=== PATIENT | female | born 1975 ===

== ENCOUNTER 2018-06-29 20:12 | Emergency (ER) | payer SELFPAY ==
[2018-06-29 21:06] LABS: Urine Blood NEGATIVE (NEG); Urine Glucose NEGATIVE (NEG); Urine Protein NEGATIVE (NEG); Urine Specific Gravity 1.025 (1.005-1.030); Urine pH 6.5 (5.0-7.0)
[2018-06-29 21:32] LABS: Urine RBC <5 /HPF (NONE SEEN); Urine Trichomonas PRESENT (NONE SEEN)
[2018-06-29 21:33] LABS: Urine Bacteria <20 /HPF (<20); Urine Culture Reflex Order NOT NEEDED
--- NOTE | 2018-06-29 21:51 | ER ---
Nurse's Notes [facility] Name: Homa Rodríguez Age: 42 yrs Sex: Female : 1975 Arrival Date: 06/29/2018 Time: 20:17 Bed 13 Private MD: Diagnosis: Herpesviral [herpes simplex] infections;Trichomoniasis Presentation: 06/29 20:27 Presenting complaint: Patient states: genital open sores, pt seen at clinic and given ak1 Flagyl and nystatin. pt stated she has had it for months but the itching causes her to scratch and the sores open. Transition of care: patient was not received from another setting of care. Onset of symptoms is unknown. Risk Assessment: Do you want to hurt yourself or someone else? Patient reports no desire to harm self or others. Initial Sepsis Screen: Does the patient meet any 2 criteria? No. Patient's initial sepsis screen is negative. Does the patient have a suspected source of infection? No. Patient's initial sepsis screen is negative. Care prior to arrival: None. 20:27 Method Of Arrival: Ambulatory ak1 20:27 Acuity: [place] 4 ak1 Triage Assessment: 20:29 General: Appears in no apparent distress. Behavior is calm, cooperative. Pain: ak1 Complains of pain in buttocks and pelvis. 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 - Social history:: Smoking status: Patient uses tobacco products, smokes one-half pack cigarettes per day. - Ebola Screening: : No symptoms or risks identified at this time. Screenin:30 Abuse screen: Denies threats or abuse. Denies injuries from another. Nutritional ak1 screening: No deficits noted. Tuberculosis screening: No symptoms or risk factors identified. Fall Risk None identified. Assessment: 22:00 General: Appears in no apparent distress. comfortable, Behavior is calm, cooperative, rr5 appropriate for age. Pain: Denies pain. Neuro: Level of Consciousness is awake, alert, obeys commands, Oriented to person, place, time, situation. Cardiovascular: Capillary refill < 3 seconds Patient's skin is warm and dry. Respiratory: Airway is patent Respiratory effort is even, unlabored, Respiratory pattern is regular, symmetrical. GI: Abdomen is round. : skin lesions at right perineal area spread to the right buttock area. examined by arias assisted by michael carrero Reports vaginal itching. EENT: No signs and/or symptoms were reported regarding the EENT system. Derm: Rash noted that is itchy, raised, on right perineal spread to pelvis and buttocks. Musculoskeletal: No signs and/or symptoms reported regarding the musculoskeletal system. 22:36 Reassessment: Patient appears in no apparent distress at this time. Patient and/or rr5 family updated on plan of care and expected duration. Pain level reassessed. discharge instruction given and explained to patient without complaints made. Patient states feeling better. Patient states symptoms have improved. Vital Signs: 20:26 BP 150 / 97; Pulse 92; Resp 18; Temp 100.1(O); Pulse Ox 98% on R/A; Weight 74.84 kg ak1 (R); Height 4 ft. 11 in. (149.86 cm); Pain 5/10; 21:30 BP 141 / 70; Pulse 90; Resp 18; Pulse Ox 99% ; rr5 22:30 BP 143 / 76; Pulse 91; Resp 17; Pulse Ox 99% on R/A; rr5 20:26 Body Mass Index 33.33 (74.84 kg, 149.86 cm) ak1 ED Course: 20:17 Patient arrived in ED. ag3 20:26 Arm band placed on Patient placed in an exam room, Patient notified of wait time. ak1 20:29 Triage completed. ak1 20:30 Patient has correct armband on for positive identification. ak1 20:39 Jose A Lau, TOSHIA is Primary Nurse. rr5 20:43 Arias Hills NP is PHCP. pm1 20:43 Mohsen Echevarria MD is Attending Physician. pm1 21:30 Urine Microscopic Only Sent. rr5 22:37 No provider procedures requiring assistance completed. Patient did not have IV access rr5 during this emergency room visit. Administered Medications: 21:10 Drug: AZITHromycin 1 grams Route: PO; rr5 22:35 Follow up: time given at 2210H not 2110 rr5 22:39 Follow up: Response: No adverse reaction rr5 22:09 Drug: Flagyl 2 grams Route: PO; rr5 22:39 Follow up: Response: No adverse reaction rr5 22:11 Drug: Rocephin (cefTRIAXone) 250 mg Route: IM; Site: left gluteus; rr5 22:39 Follow up: Response: No adverse reaction rr5 Intake: Outcome: 21:51 Discharge ordered by MD. pm1 22:37 Discharged to home ambulatory. rr5 22:37 Condition: stable 22:37 Discharge instructions given to patient, Instructed on discharge instructions, follow up and referral plans. medication usage, Demonstrated understanding of instructions, follow-up care, medications, Prescriptions given X 1. 22:38 Patient left the ED. rr5 Signatures: Jessica Sawyer RN RN ak1 Arias Hills NP ASSEMBLY LEADER pm1 Elizabeth Ochoa 3 Jose A Lau RN RN rr5
--- NOTE | 2018-06-29 21:52 | EDPHYS ---
Physician Documentation [facility] Name: Homa Rodríguez Age: 42 yrs Sex: Female : 1975 Arrival Date: 06/29/2018 Time: 20:17 Bed 13 Private MD: ED Physician Mohsen Echevarria HPI: 06/29 22:00 This 42 yrs old Female presents to ER via Ambulatory with complaints of Skin Sore(s). pm1 22:00 Onset: The symptoms/episode began/occurred 2 month(s) ago. pm1 22:00 The patient presents with rash. Onset: The symptoms/episode began/occurred 2 month(s) pm1 ago. Modifying factors: The symptoms are alleviated by scratching, the symptoms are aggravated by nothing. Associated signs and symptoms: Pertinent positives: vaginal discharge, Pertinent negatives: cramping, diarrhea, fever, nausea, vomiting. The patient is sexually active, reports multiple partners, 2. The patient has been recently seen by a physician: 1 month(s) ago, with similar presenting complaints, and apparently given a diagnosis of Trichomoniasis and given Flagyl PO. Patient with itchy and painful rash to buttocks and groin area for th past two months. 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 - Social history:: Smoking status: Patient uses tobacco products, smokes one-half pack cigarettes per day. - Ebola Screening: : No symptoms or risks identified at this time. ROS: 22:00 Positive for vaginal discharge, Rash to groin. pm1 22:00 Constitutional: Negative for fever, chills, and weight loss, Eyes: Negative for injury, pain, redness, and discharge, ENT: Negative for injury, pain, and discharge, Neck: Negative for injury, pain, and swelling, Cardiovascular: Negative for chest pain, palpitations, and edema, Respiratory: Negative for shortness of breath, cough, wheezing, and pleuritic chest pain, Abdomen/GI: Negative for abdominal pain, nausea, vomiting, diarrhea, and constipation, Back: Negative for injury and pain, MS/Extremity: Negative for injury and deformity, Skin: Negative for injury, rash, and discoloration, Neuro: Negative for headache, weakness, numbness, tingling, and seizure. Exam: 22:00 Constitutional: This is a well developed, well nourished patient who is awake, alert, pm1 and in no acute distress. Head/Face: Normocephalic, atraumatic. Eyes: Pupils equal round and reactive to light, extra-ocular motions intact. Lids and lashes normal. Conjunctiva and sclera are non-icteric and not injected. Cornea within normal limits. Periorbital areas with no swelling, redness, or edema. ENT: Nares patent. No nasal discharge, no septal abnormalities noted. Tympanic membranes are normal and external auditory canals are clear. Oropharynx with no redness, swelling, or masses, exudates, or evidence of obstruction, uvula midline. Mucous membranes moist. Neck: Trachea midline, no thyromegaly or masses palpated, and no cervical lymphadenopathy. Supple, full range of motion without nuchal rigidity, or vertebral point tenderness. No Meningismus. Chest/axilla: Normal chest wall appearance and motion. Nontender with no deformity. No lesions are appreciated. Cardiovascular: Regular rate and rhythm with a normal S1 and S2. No gallops, murmurs, or rubs. Normal PMI, no JVD. No pulse deficits. Respiratory: Lungs have equal breath sounds bilaterally, clear to auscultation and percussion. No rales, rhonchi or wheezes noted. No increased work of breathing, no retractions or nasal flaring. Abdomen/GI: Soft, non-tender, with normal bowel sounds. No distension or tympany. No guarding or rebound. No evidence of tenderness throughout. Back: No spinal tenderness. No costovertebral tenderness. Full range of motion. 22:00 Skin: Warm, dry with normal turgor. Normal color with no rashes, no lesions, and no evidence of cellulitis. MS/ Extremity: Pulses equal, no cyanosis. Neurovascular intact. Full, normal range of motion. 22:00 : CVA tenderness, is absent, Pelvic Exam: External exam: herpes lesions noted, [facility] tech. 22:00 Neuro: Orientation: is normal, Motor: moves all fours. Vital Signs: 20:26 BP 150 / 97; Pulse 92; Resp 18; Temp 100.1(O); Pulse Ox 98% on R/A; Weight 74.84 kg ak1 (R); Height 4 ft. 11 in. (149.86 cm); Pain 5/10; 21:30 BP 141 / 70; Pulse 90; Resp 18; Pulse Ox 99% ; rr5 22:30 BP 143 / 76; Pulse 91; Resp 17; Pulse Ox 99% on R/A; rr5 20:26 Body Mass Index 33.33 (74.84 kg, 149.86 cm) ak1 MDM: 20:45 Patient medically screened. saurabh 21:48 Data reviewed: vital signs. Counseling: I had a detailed discussion with the patient pm1 and/or guardian regarding: the historical points, exam findings, and any diagnostic results supporting the discharge/admit diagnosis, lab results, the need for outpatient follow up, STD clinic, probate lawyer, to return to the emergency department if symptoms worsen or persist or if there are any questions or concerns that arise at home. 06/29 20:59 Order name: Urine Dipstick--Ancillary (enter results); Complete Time: 21:14 ar5 06/29 21:17 Order name: Urine Microscopic Only; Complete Time: 21:35 rr5 Administered Medications: 21:10 Drug: AZITHromycin 1 grams Route: PO; rr5 22:35 Follow up: time given at 2210H not 2110 rr5 22:39 Follow up: Response: No adverse reaction rr5 22:09 Drug: Flagyl 2 grams Route: PO; rr5 22:39 Follow up: Response: No adverse reaction rr5 22:11 Drug: Rocephin (cefTRIAXone) 250 mg Route: IM; Site: left gluteus; rr5 22:39 Follow up: Response: No adverse reaction rr5 Disposition: 06/29/18 21:51 Discharged to Home. Impression: Herpesviral [herpes simplex] infections, Trichomoniasis. - Condition is Stable. - Discharge Instructions: Genital Herpes, Trichomoniasis. - Prescriptions for Valtrex 1 g Oral Tablet - take 1 tablet by ORAL route every 12 hours for 10 days; 20 tablet. - Medication Reconciliation Form, Thank You Letter, Antibiotic Education, Prescription Opioid Use form. - Follow up: Emergency Department; When: As needed; Reason: Worsening of condition. Follow up: Private Physician; When: 2 - 3 days; Reason: Recheck today's complaints, Continuance of care, Re-evaluation by your physician. - Problem is new. - Symptoms have improved. Addendum: 07/05/2018 11:29 Co-signature as Attending Physician, Mohsen Echevarria MD I agree with the assessment and c kelsey plan of care. Signatures: Dispatcher [employer] EDMT Mohsen Echevarria MD MD cha Krenek, Amber, RN RN ak1 Shoaib Hills NP AVIATION MECHANIC pm1 Jose A Lau RN RN rr5 Corrections: (The following items were deleted from the chart) 06/29 22:38 21:51 06/29/2018 21:51 Discharged to Home. Impression: Herpesviral [herpes simplex] rr5 infections; Trichomoniasis. Condition is Stable. Forms are Medication Reconciliation Form, Thank You Letter, Antibiotic Education, Prescription Opioid Use. Follow up: Emergency Department; When: As needed; Reason: Worsening of condition. Follow up: Private Physician; When: 2 - 3 days; Reason: Recheck today's complaints, Continuance of care, Re-evaluation by your physician. Problem is new. Symptoms have improved. pm1
[2018-06-29] MEDS ORDERED: AZITHROMYCIN 250 MG TAB ONE ×2 (22:10→22:14)
[2018-06-29] MEDS ORDERED: metroNIDAZOLE 500 MG TABLET ONE (22:11)
[2018-06-29] MEDS ORDERED: CEFTRIAXONE 250 MG/VIAL ONE (22:11)
[2018-06-29] MEDS ORDERED: WATER FOR INJ,STERILE 10 ML ONE (22:11)
== END 2018-06-29 22:38 | disposition home or self-care (01) ==
LOC: ER 20:12
DX: B00.9 Herpesviral infection, unspecified (principal); A59.9 Trichomoniasis, unspecified; F17.210 Nicotine dependence, cigarettes, uncomplicated
CPT/HCPCS: 81003; 81015; 96372; 99283; J0696